=== PATIENT | male | born 1975 | race Caucasian/White ===

== ENCOUNTER 2018-04-11 21:26 | Emergency (ER) | payer BC ==
[2018-04-12 00:16] LABS: APPEARANCE,URINE SLIGHTLY-CLOUDY; BILIRUBIN,URINE NEGATIVE (NEGATIVE); COLOR,URINE YELLOW; GLUCOSE, URINE NEGATIVE (NEGATIVE); KETONES,URINE NEGATIVE (NEGATIVE); LEUKOCYTE ESTERASE,URINE NEGATIVE (NEGATIVE); NITRITE,URINE NEGATIVE (NEGATIVE); PROTEIN,URINE 30 mg/dL (NEGATIVE); URINE SPECIFIC GRAVITY 1.021; UROBILINOGEN,URINE NEGATIVE mg/dL (<2.0)
--- NOTE | 2018-04-12 00:54 | ER Document Report ---
ED General - General Mode of Arrival: Ambulatory Information source: Patient TRAVEL OUTSIDE OF THE [place] IN LAST 30 DAYS: No <CLARICE MCCLAIN - Last Filed: 04/12/18 02:43> <MAGO TUCKER - Last Filed: 04/12/18 03:57> - General Chief Complaint: Flank Pain Stated Complaint: FLANK PAIN Time Seen by Provider: 04/12/18 00:05 Notes: Patient is a 43 year old male with hypertension presents to the emergency department complaining of left flank pain onset 3 days ago. Patient states when the pain was originally onset it lasted for approximately 30 minutes and went completely away. He further states the same pain was suddenly onset today and lasted approximately 2 hours. Patient describes the pain as sharp and stabbing. Patient also complained of some nausea and burning sensation with urination. Patient denies vomiting, diarrhea, fevers or hematuria. (CLARICE MCCLAIN) Past Medical History - General Information source: Patient - Social History Smoking Status: Never Smoker Cigarette use (# per day): No Chew tobacco use (# tins/day): No Frequency of alcohol use: Occasional Family History: Reviewed & Not Pertinent - Past Medical History Cardiac Medical History: Reports: Hx Hypertension <CLARICE MCCLAIN - Last Filed: 04/12/18 02:43> Review of Systems - Review of Systems Constitutional: No symptoms reported. denies: Fever EENT: No symptoms reported Cardiovascular: No symptoms reported Respiratory: No symptoms reported Gastrointestinal: See HPI, Nausea. denies: Diarrhea, Vomiting Genitourinary: See HPI, Burning, Flank pain Male Genitourinary: No symptoms reported Musculoskeletal: No symptoms reported Skin: No symptoms reported Hematologic/Lymphatic: No symptoms reported Neurological/Psychological: No symptoms reported -: Yes All other systems reviewed and negative <CLARICE MCCLAIN - Last Filed: 04/12/18 02:43> Physical Exam <CLARICE MCCLAIN - Last Filed: 04/12/18 02:43> <MAGO TUCKER - Last Filed: 04/12/18 03:57> - Vital signs Vitals: Temp Pulse Resp BP Pulse Ox 98.3 F 90 16 152/100 H 97 04/11/18 22:14 04/11/18 22:14 04/11/18 22:14 04/11/18 22:14 04/11/18 22:14 - Notes Notes: GENERAL: Alert, interacts well. No acute distress. HEAD: Normocephalic, atraumatic. EYES: Pupils equal, round, and reactive to light. Extraocular movements intact. ENT: Oral mucosa moist, tongue midline. NECK: Full range of motion. Supple. Trachea midline. HEART: Regular rate and rhythm. No murmurs, gallops, or rubs. EXTREMITIES: Moves all 4 extremities spontaneously. NEUROLOGICAL: Alert and oriented x3. Normal speech. PSYCH: Normal affect, normal mood. SKIN: Warm, dry, normal turgor. No rashes or lesions noted. BACK: Left CVA tenderness to palpation. (CLARICE MCCLAIN) Course - Laboratory Result Diagrams: 04/12/18 00:42 04/12/18 00:42 <CLARICE MCCLAIN - Last Filed: 04/12/18 02:43> - Laboratory Result Diagrams: 04/12/18 00:42 04/12/18 00:42 <MAGO TUCKER - Last Filed: 04/12/18 03:57> - Re-evaluation Re-evalutation: 04/12/18 03:56 Patient is a 43-year-old male who presents with excruciating sudden onset of flank and abdominal pain at home. Patient also had blood in his urine. Symptoms have since resolved on their own. No history of kidney stones. No recent illnesses. No acute findings on CT. Blood work within normal limits. No fever. Patient has remained asymptomatic in the emergency department. Likely recently passed kidney stone. Patient will be discharged home and is to follow-up with his doctor. Return if any worsening or concerning symptoms. Understands and agrees with plan. Stable for discharge (MAGO TUCKER) - Vital Signs Vital signs: Temp Pulse Resp BP Pulse Ox 98.4 F 80 16 136/76 H 95 04/12/18 03:05 04/12/18 03:05 04/12/18 03:05 04/12/18 03:05 04/12/18 03:05 - Laboratory Laboratory results interpreted by me: 04/11/18 04/12/18 04/12/18 23:59 00:42 00:42 WBC 11.3 H Glucose 117 H Urine Protein 30 H Urine Blood LARGE H Urine Ascorbic Acid 40 H Discharge <CLARICE MCCLAIN - Last Filed: 04/12/18 02:43> <MAGO TUCKER - Last Filed: 04/12/18 03:57> - Discharge Clinical Impression: Kidney stone on left side Condition: Stable Disposition: HOME, SELF-CARE Instructions: Kidney Stone (OM) Additional Instructions: It appears that you have passed a kidney stone. Please follow-up with your doctor this week. Take a copy of your records with you. Forms: Return to Work Scribe Attestation: 04/12/18 03:57 I personally performed the services described in the documentation, reviewed and edited the documentation which was dictated to the scribe in my presence, and it accurately records my words and actions. (MAGO TUCKER) Scribe Documentation - Scribe Written by Scribe:: Jt Mcmahan, 04/12/2018 01:26 acting as scribe for :: Shayla <CLARICE MCCLAIN - Last Filed: 04/12/18 02:43>
[2018-04-12 01:03] LABS: ABSOLUTE BASOPHILS # (AUTO) 0.1 10^3/uL (0.0-0.2); ABSOLUTE EOSINOPHILS # (AUTO) 0.2 10^3/uL (0.0-0.6); ABSOLUTE LYMPHOCYTES (AUTO) 2.2 10^3/uL (0.5-4.7); ABSOLUTE MONOCYTES (AUTO) 0.8 10^3/uL (0.1-1.4); BASOPHILS % (AUTO) 0.6 % (0-2); EOSINOPHILS % (AUTO) 1.4 % (0-6); HEMATOCRIT 43.8 % (37.9-51.0); HEMOGLOBIN 15.4 g/dL (13.5-17.0); LYMPHOCYTES % (AUTO) 19.8 % (13-45); MEAN CORPUSCULAR HGB CONC 35.2 g/dL (32.0-36.0); MEAN CORPUSCULAR VOLUME 85 fl (80-97); MONOCYTES % (AUTO) 7.2 % (3-13); PLATELET COUNT 187 10^3/uL (150-450); RED BLOOD COUNT 5.15 10^6/uL (4.35-5.55); RED CELL DISTRIBUTION WIDTH 13.3 % (11.5-14.0); TOTAL CELLS COUNTED % (AUTO) 100 %; WHITE BLOOD COUNT 11.3 10^3/uL (4.0-10.5)
[2018-04-12 01:15] LABS: ALANINE AMINOTRANSFERASE 68 U/L (21-72); ALBUMIN 4.6 g/dL (3.5-5.0); ALKALINE PHOSPHATASE 59 U/L (38-126); ANION GAP 11 (5-19); ASPARTATE AMINO TRANSFERASE 36 U/L (17-59); BILIRUBIN,DIRECT 0.3 mg/dL (0.0-0.4); BLOOD UREA NITROGEN 19 mg/dL (7-20); CALCIUM 10.1 mg/dL (8.4-10.2); CARBON DIOXIDE 24 mmol/L (22-30); CHLORIDE 106 mmol/L (98-107); GLUCOSE 117 mg/dL (75-110); LIPASE 152.9 U/L (23-300); POTASSIUM 4.4 mmol/L (3.6-5.0); SODIUM 141.1 mmol/L (137-145); TOTAL PROTEIN 7.8 g/dL (6.3-8.2)
[2018-04-12] MEDS ORDERED: KETOROLAC TROMETHAMINE INJ/PF 30 MG/1 ML SDV IV ONE (01:23)
--- NOTE | 2018-04-12 02:17 | RADIOLOGY REPORT (SQ) ---
EXAM DESCRIPTION: CT ABDOMEN PELVIS WITHOUT IV CONTRAST CLINICAL HISTORY: 43 years Male, L Flank, pain, blood in urine Comparison: None. Technique: No contrast. Coronal and sagittal reformat. This exam was performed according to our departmental dose-optimization program, which includes automated exposure control, adjustment of the mA and/or kV according to patient size and/or use of iterative reconstruction technique.[facility]: Dose Right [facility]: CareDose [facility]: Dose Right [facility]: Teradose 4D [facility]: [employer] LIMITATIONS: None Findings: Splenomegaly index is 907. Mild hepatic steatosis. Decompressed gallbladder. Small right inguinal fat only hernia. Unenhanced lower thorax, abdominopelvic structures, and musculoskeleton appear otherwise grossly unremarkable. Impression: Moderate splenomegaly. Mild hepatic steatosis.
[2018-04-12] MEDS ORDERED: HYDROCODONE/ACETAMINOPHEN 5-325 MG (6 TAB/ER DISP) PO PRN (02:51)
[2018-04-12] MEDS ORDERED: ONDANSETRON ODT 4 MG TAB (6 TAB/ER DISP) PO PRN (02:51)
[2018-04-12 03:18] VITALS: BP 136/76
== END 2018-04-12 03:18 | disposition home or self-care (01) ==
LOC: ER 21:26
DX: N20.0 Calculus of kidney (principal); R10.9 Unspecified abdominal pain; R11.0 Nausea; I10 Essential (primary) hypertension
CPT/HCPCS: 99284; 96374; 36415; 83690; 85025; 80053; 81001; 74176; J1885